=== PATIENT | female | born 1970 | race Caucasian/White ===

== ENCOUNTER → 2017-09-03 10:14 | Outpatient (CLI) | payer BC | END | disposition home or self-care (01) | LOC: D.CT 10:14 | DX: R10.13 Epigastric pain (principal); R10.9 Unspecified abdominal pain; R74.8 Abnormal levels of other serum enzymes; R94.5 Abnormal results of liver function studies ==

== ENCOUNTER → 2017-09-17 09:45 | Outpatient (CLI) | payer BC | END | disposition home or self-care (01) | LOC: D.RAD 08:00 | DX: R74.8 Abnormal levels of other serum enzymes (principal); R10.13 Epigastric pain; K21.9 Gastro-esophageal reflux disease without esophagitis; R11.2 Nausea with vomiting, unspecified ==